=== PATIENT | female | born 1950 | race Caucasian/White ===

== ENCOUNTER → 2016-11-11 | Outpatient (CLI) | payer OTHER ==
[~2016-11-11] MED LIST: ALEVE220 MG PO; BIOTIN10 MG PO; DAILY VITAMIN1 EAC4 PO; IRON325 M1 PO; MIACALCIN4 ML NS; OSTEO BI-FLEX1 EAC1 PO; STOOL SOFTENER100 MG PO
== END | disposition home or self-care (01) ==
DX: M16.11 Unilateral primary osteoarthritis, right hip (principal); R26.2 Difficulty in walking, not elsewhere classified; M62.81 Muscle weakness (generalized); M25.652 Stiffness of left hip, not elsewhere classified
CPT/HCPCS: 97110 GP; 97150 GO; 97161 GP; 97165 GO

== ENCOUNTER 2016-12-02 08:28 | Inpatient (IN) | payer OTHER ==
[~2016-12-02] VITALS: Ht 170.2 cm; Wt 80.8 kg
[2016-12-02 09:24] VITALS: BP 130/60
[2016-12-02 14:34] LABS: HEMATOCRIT 35.2 % (36.0-46.0); MCH 30.3 PG (29.0-34.0); MCHC 32.4 G/DL (30.0-36.0); MCV 93.6 FL (83-99); MEAN PLAT.VOLUME 10.2 uM^3 (9.5-12.4); PLATELET COUNT 199 K/uL (156-360); RBC DIS.WIDTH-CV 12.4 % (11.8-14.6); RBC DIS.WIDTH-SD 43.1 % (39-53); RED BLOOD COUNT 3.76 M/uL (3.80-5.20); WHITE BLOOD COUNT 6.6 K/uL (4.1-10.2)
[2016-12-02 15:35] VITALS: BP 127/60
[2016-12-02 20:07] VITALS: BP 143/65
[2016-12-03] VITALS (7 sets, daily range): BP systolic 113–132; BP diastolic 55–76
[2016-12-03 05:59] LABS: ANION GAP 7 MEQ/L (2-14); CHLORIDE 102 MEQ/L (99-109); GFR ESTIMATE (CALCULATED) > 59 mL/min/; GLUCOSE 137 mg/dL (70-99); POTASSIUM 4.1 MEQ/L (3.7-5.4); SAMPLE HEMOLYSIS CHECK 0; SAMPLE ICTERIC CHECK 0; SAMPLE LIPEMIA CHECK 0; SODIUM 133 MEQ/L (136-147); UREA NITROGEN (BUN) 10 mg/dL (9-23)
[2016-12-03 13:49] LABS: HEMATOCRIT 33.6 % (36.0-46.0); MCV 92.8 FL (83-99)
[2016-12-04 03:53] VITALS: BP 130/60
[2016-12-04 08:36] VITALS: BP 126/58
[2016-12-04] MEDS ORDERED: HYDROCODON-ACE1 EAC7 PO (08:47)
[2016-12-04] MEDS ORDERED: LOVENOX40 MG/0.4 SC (08:47)
[2016-12-04 11:45] VITALS: BP 128/60
[2016-12-04 15:06] VITALS: BP 124/60
== END 2016-12-04 15:36 | DRG 470 ==
LOC: 2SOUTH 08:28 → 3WEST 08:39 → 2SOUTH 09:08 → 3WEST 15:25
PROVIDERS: Orthopaedic Surgery
PROC: 0SRB0J9 Replacement of Left Hip Joint with Synthetic Substitute, Cemented, Open Approach (ICD-10-PCS; principal; 2016-12-02)
DX: M16.12 Unilateral primary osteoarthritis, left hip (principal)
CPT/HCPCS: 71010; 73501; 80048; 85014; 85018; 85027; J0131; J0690; J1170; J1650; J2250; J2405; J3010; J7050

== ENCOUNTER 2018-03-01 21:00 | Inpatient (IN) | payer OTHER ==
[~2018-03-01] VITALS: Ht 170.2 cm; Wt 84.4 kg
[~2018-03-01 21:00] MED LIST changes: +COLACE100 MG PO; +HYDROCHLOROTHIA25 MG PO; +HYDROCODON-ACE1 EAC7 PO; +LOVENOX40 MG/0.4 SC
[2018-03-02 05:59] VITALS: BP 137/67
[2018-03-02 10:42] LABS: HEMATOCRIT 37.2 % (36.0-46.0); HEMOGLOBIN 12.4 G/DL (11.9-15.5); MCH 31.2 PG (29.0-34.0); MCHC 33.3 G/DL (30.0-36.0); MCV 93.7 FL (83-99); PLATELET COUNT 227 K/uL (156-360); RBC DIS.WIDTH-CV 12.3 % (11.8-14.6); RBC DIS.WIDTH-SD 42.5 % (39-53); RED BLOOD COUNT 3.97 M/uL (3.80-5.20); WHITE BLOOD COUNT 9.2 K/uL (4.1-10.2)
[2018-03-02 11:07] VITALS: BP 114/60
[2018-03-02 15:34] VITALS: BP 109/62
[2018-03-02 20:29] VITALS: BP 116/58
[2018-03-03] VITALS (7 sets, daily range): BP systolic 111–136; BP diastolic 52–69
[2018-03-03 06:05] LABS: HEMATOCRIT 37.3 % (36.0-46.0); HEMOGLOBIN 12.2 G/DL (11.9-15.5); MCV 93.7 FL (83-99)
[2018-03-03 06:24] LABS: CHLORIDE 105 MEQ/L (99-109); CREATININE 0.8 MG/DL (0.6-1.3); GFR ESTIMATE (CALCULATED) > 59 mL/min/; GLUCOSE 106 mg/dL (70-99); POTASSIUM 4.4 MEQ/L (3.7-5.4); SODIUM 139 MEQ/L (136-147); UREA NITROGEN (BUN) 13 mg/dL (9-23)
[2018-03-04 04:03] VITALS: BP 115/63
[2018-03-04 08:09] VITALS: BP 134/66
[2018-03-04] MEDS ORDERED: TYLENOL REGULA325 MG PO (08:43)
[2018-03-04] MEDS ORDERED: OXYCODONE HCL5 MG PO (08:44)
[2018-03-04] MEDS ORDERED: CELECOXIB200 MG PO (08:44)
[2018-03-04] MEDS ORDERED: LOVENOX40 MG/0.4 SC (08:44)
[2018-03-04 11:57] VITALS: BP 117/57
== END 2018-03-04 14:08 | disposition home health service (06) | DRG 470 ==
LOC: ENRESERV 21:00 → 3WEST 03-02 05:34 → 2SOUTH 03-02 05:34 → 3WEST 03-02 10:53 → 2SOUTH 03-02 15:14 → 3WEST 03-04 14:08
PROVIDERS: Orthopaedic Surgery
PROC: 0SR9029 Replacement of Right Hip Joint with Metal on Polyethylene Synthetic Substitute, Cemented, Open Approach (ICD-10-PCS; principal; 2018-03-02)
DX: M16.11 Unilateral primary osteoarthritis, right hip (principal); Z96.642 Presence of left artificial hip joint; Z80.6 Family history of leukemia; Z80.7 Family history of other malignant neoplasms of lymphoid, hematopoietic and related tissues; Z82.49 Family history of ischemic heart disease and other diseases of the circulatory system
CPT/HCPCS: 73501; 73522; 80048; 85014; 85018; 85027; C1713; J0131; J0330; J0690; J1100; J1170; J1650; J2250; J2405; J2710; J3010; J7030; J7050; J7643; S0020